=== PATIENT | male | born 1995 | race Hispanic/Latino ===

== ENCOUNTER 2017-12-07 21:30 | Emergency (ER) | payer OTHER ==
[2017-12-07] MEDS ORDERED: IBUPROFEN 800 MG TAB ONE (21:56)
[2017-12-07] MEDS ORDERED: OSELTAMIVIR PHOSPHATE 75 MG CAP ONE (22:38)
== END 2017-12-07 22:59 | disposition home or self-care (01) ==
LOC: EDH 21:30
DX: J10.1 Influenza due to other identified influenza virus with other respiratory manifestations (principal); Z21 Asymptomatic human immunodeficiency virus [HIV] infection status